=== PATIENT | male | born 1985 | race Hispanic/Latino ===

== ENCOUNTER 2025-04-17 04:27 | Emergency (ER) | payer SELFPAY ==
[~2025-04-17] VITALS: Ht 177.8 cm; Wt 94.3 kg
--- NOTE | 2025-04-17 04:41 | NUR ---
MANDATORY BLOOD DRAW DONE PER [facility].
[2025-04-17 04:52] VITALS: BP 136/78; PULSE 88; RESP 20; TEMP 98; O2SAT 98
== END 2025-04-17 05:01 ==
LOC: EEVIPCON 04:27 → EDH 04:27
DX: Z02.89 Encounter for other administrative examinations (principal); Z53.21 Procedure and treatment not carried out due to patient leaving prior to being seen by health care provider
CPT/HCPCS: 36415; 99281